=== PATIENT | male | born 1995 | race Caucasian/White ===

== ENCOUNTER 2017-10-31 10:52 | Emergency (ER) | payer SELFPAY ==
[2017-10-31] MEDS: KETOROLAC 60 MG/2 ML INJ. IM (11:49)
== END 2017-10-31 13:24 | disposition home or self-care (01) ==
LOC: ER 10:52
DX: R07.89 Other chest pain (principal); K21.9 Gastro-esophageal reflux disease without esophagitis; F12.10 Cannabis abuse, uncomplicated; Z90.49 Acquired absence of other specified parts of digestive tract; Z88.8 Allergy status to other drugs, medicaments and biological substances
CPT/HCPCS: 71046; 93005; 96372; 99284-25; J1885